=== PATIENT | male | born 1935 | race Caucasian/White ===

== ENCOUNTER 2017-05-24 18:14 | Inpatient (IN) | payer MEDICARE, BC ==
[~2017-05-24] VITALS: Ht 177.8 cm; Wt 84.4 kg
[~2017-05-24 18:14] MED LIST: GLUCOTROL 5 MG T5 MG PO; NORCO 10/325 TA1 TA1 PO; PLAVIX75 MG PO; PRAVACHOL40 MG PO; PRINIVIL20 MG PO; TIMOPTIC 0.5 % O5 ML EACH EYE; TRIGLIDE160 MG PO; XALATAN 0.0052.5 ML EACH EYE
[2017-05-24 19:19] LABS: BASOPHILS 0.1 % (0-2); EOSINOPHILS 0.2 % (0-7); HEMATOCRIT 43.4 % (42.0-54.0); HEMOGLOBIN 14.9 g/dL (13.5-17.5); IMMATURE GRANULOCYTES 0.6 % (0-5); LYMPHOCYTES 5.1 % (15-50); MCH 31.6 pg (26.0-34.0); MCHC 34.3 g/dL (31.0-37.0); MCV 92.1 fL (80.0-100.0); MEAN PLATELET VOLUME 8.9 fL (7.4-10.4); MONOCYTES 9.3 % (2-11); NEUTROPHILS 84.7 % (40-80); PLATELET COUNT 252 10x3/uL (130-400); RBC 4.71 10x6/uL (4.20-6.10); WBC 12.4 10x3/uL (4.8-10.8)
[2017-05-24 19:38] LABS: ALBUMIN 2.6 g/dL (3.4-5.0); ALKALINE PHOSPHATASE 97 U/L (46-116); ALT (SGPT) 12 U/L (10-68); CALC OSMOLALITY 285 mosm/kg (275-300); CALCIUM 9.4 mg/dL (8.5-10.1); CARBON DIOXIDE 23.8 mmol/L (21.0-32.0); CHLORIDE - SERUM 106 mmol/L (98-107); CREATININE - SERUM 0.9 mg/dL (0.6-1.3); GLUCOSE 149 mg/dL (74-106); POTASSIUM - SERUM 3.3 mmol/L (3.5-5.1); SODIUM 141 mmol/L (136-145); UREA NITROGEN 17 mg/dL (7-18); eGFR NON AFRICAN AMERICAN 86 mL/min (90-120)
[2017-05-24 20:16] LABS: APPEARANCE HAZY (CLEAR); BILIRUBIN NEGATIVE (NEGATIVE); COLOR YELLOW (YELLOW); GLUCOSE NEGATIVE (NEGATIVE); KETONE NEGATIVE (NEGATIVE); LEUKOCYTE ESTERASE 2+ (NEGATIVE); NITRITE NEGATIVE (NEGATIVE); PROTEIN TRACE mg/dL (NEGATIVE); UROBILINOGEN NORMAL (NORMAL)
[2017-05-24 20:17] LABS: WHITE CELLS - URINE 25-50 /hpf (0-5)
[2017-05-24 20:18] LABS: BACTERIA MANY /hpf (NONE SEEN)
--- NOTE | 2017-05-24 23:38 | NUR ---
CALLED ER FOR REPORT ON FROM [facility]. AFTER BEING ON HOLD 5 MINS I HUNG UP TO ANSWER A CALL LIGHT THAT WAS ON. WILL CALL BACK TO ER SHORTLY.
[2017-05-25] VITALS (7 sets, daily range): BP systolic 91–116; BP diastolic 51–68; Ht 177.8 cm; Wt 84.4 kg
--- NOTE | 2017-05-25 00:02 | NUR ---
REPORT RECEIVED FROM ZINA. PT IS REPORTED TO BE CONFUSED. AA0 X1. ANXIOUS. PT IS CALM WHEN FAMILY IS IN ROOM AND FAMILY IS AT BEDSIDE. WILL PREPARE ROOM AND PUT A OMKAR ALARM FOR PT. POTASSIUM IS NOTED TO BE 3.3. ZINA STATES SHE WILL ADDRESS THIS WITH THE DOCTOR PRIOR TO TRANSFERING PT UP TO ROOM 2135. WILL PT NOTE IN WHEN PT ARRIVES
--- NOTE | 2017-05-25 01:00 | NUR ---
PT ARRIVED TO ROOM VIA STRECHER. AT BEDSIDE. PT HAS 2L OF NC. HAILY SHOWS CONCENTRATED RED URINE. ZINA BROUGHT UP POTASSIUM 40MEQ. ZINA STATES GAVE VERBAL ORDER FOR THE 40MEQ. WILL PUT ORDER IN AND GIVE POTASSIUM. MED REC DONE. PT DENIES ANY NEEDS. NO S/S OF DISTRESS. IV TO LEFT HAND IS PATENT NO REDNESS OR SWELLING. INFUSING NS AT 75ML/HR ORDERED. BED LOW CALL LIGHT IN REACH. BED ALARM ON AND ACTIVATED. WILL CPOC
[2017-05-25] MEDS ORDERED: BUPROPION XL150 MG PO (01:06)
[2017-05-25] MEDS ORDERED: PREDNISONE5 MG PO (01:06)
[2017-05-25] MEDS ORDERED: ZYTIGA250 MG PO (01:07)
[2017-05-25] MEDS ORDERED: VITAMIN D31000 UNI2 PO (01:09)
[2017-05-25] MEDS ORDERED: FISH OIL 1,0001 CA1 PO (01:09)
[2017-05-25] MEDS ORDERED: BAYER CHEWABLE81 MG PO (01:10)
[2017-05-25] MEDS ORDERED: PLAVIX75 MG PO (01:11)
[2017-05-25] MEDS ORDERED: FERROUS SULFAT140 MG PO (01:11)
--- NOTE | 2017-05-25 03:26 | NUR ---
PT ASLEEP. RESPIRATIONS EVEN AND UNLABORED. PT HAS CONCENTRATED RED URINE, SEDIMENT AND CLOTS SEEN. PT HAS NO S/S OF DISTRESS. BED LOW CALL LIGHT IN REACH. BED ALARM ON. WILL CPOC
--- NOTE | 2017-05-25 07:30 | NUR ---
REPORT RECIEVED. RR EVEN AND UNLABORED. PT ALERT AND ORIENTED X4. INTRODUCED SELF AND PLACED NAME ON WHITE BOARD. PT DENIES NEEDS AT THIS TIME. BAILEY DRAINING CLOUDY, RED, CONCENTRATED URINE. WILL CTM.
--- NOTE | 2017-05-25 13:15 | NUR ---
ASSISTED PT OFF THE BED MEAD, HAD MODERATE SIZED BROWN BM. PT RESTING QUIETLY, WILL CTM.
--- NOTE | 2017-05-25 18:06 | NUR ---
PT RESTING QUIELTY, CATHETER EMPTIED. RR EVEN AND UNLABORED, PT ALERT AND ORIENTED X4. WILL GIVE REPORT ON PT CONDITION FOR THE DAY.
--- NOTE | 2017-05-25 19:38 | NUR ---
PT ASLEEP. RESPIRATIONS EVEN AND UNLABORED. AT BEDSIDE. PT HAS NO S/S OF DISTRESS. BED LOW CALL LIGHT WITHIN REACH. BED ALARM ON AND ACTIVE. NS INFUSING TO LEFT HAND IV AT 75. WILL CPOC
--- NOTE | 2017-05-25 21:23 | NUR ---
PT AWAKE AT THIS TIME FOR 2100 MEDS. BLOOD SUGAR IS 242. WILL ADMINISTER 4 UNITS. PT IS MORE ALERT THAN YESTURDAY. AAO TO NAME AND TIME. REORIENTED TO PLACE AND SITUATION. PT TOLERATED MEDS WELL. DENIES ANY NEEDS. URINE HAS DECREASED IN CONCENTRATION AND COLOR IS NOW MANUELA CLOTS AND SEDIMENT STILL PRESENT. WILL CPOC
[2017-05-26] VITALS: BP 136/71
[2017-05-26 04:00] VITALS: BP 148/81
--- NOTE | 2017-05-26 06:42 | NUR ---
PT ASLEEP. RESPIRATIONS EVENA AND UNLABORED. NO S/S OF DISTRESS. WILL CPOC
--- NOTE | 2017-05-26 07:42 | NUR ---
AM ROUNDING- RECEIVED REPORT FROM SUPPLY CHAIN PLANNER NURSE JAYDA. PT IS CURRENTLY LAYING IN BED ON BACK WITH EYES CLOSED RESTING. ON 02 AT 2L VIA NC. ON MONITOR SHOWING SR, HR 63. IV SEEN TO LEFT HAND WITH NS RUNNING AT 75CC. BAILEY CATHETER SEEN WITH CONCENTRATED URINE. SCDS ARE ON. NO NEED AT THIS CURRENT TIME. WILL CONTINUE TO MONITOR AND CONTINUE WITH PLAN OF CARE.
[2017-05-26 09:31] VITALS: BP 138/78
--- NOTE | 2017-05-26 10:29 | NUR ---
1015- LYDIA JONES STATES PTS IV IS OUT AND THERE IS BLOOD ON PTS BED. I WENT TO CHECK ON PT. IV SEEN OUT AND LAYING ON FLOOR. BLOOD SEEN ON PTS GOWN, BED, BED RAILS, AND FLOOR. THIS NURSE HELD PRESSURE TO IV SITE FOR SEVERAL MINUTES. NO BLEEDING SEEN AFTER. LYDIA JONES AND LYDIA DEMARCO ARE IN ROOM HELPING CLEAN UP PT. SKY HUERTA, TRAINER IN ROOM NOW STARTING IV CATHETER. 1025- SKY HUERTA, TRAINER SITED PT WITH 20G IV CATHETER TO RIGHT FOREARM.
--- NOTE | 2017-05-26 10:46 | NUR ---
LYDIA DEMARCO IN ROOM NOW GETTING PT CLEANED UP. FAMILY MEMBERS ARE AT BEDSIDE.
--- NOTE | 2017-05-26 12:32 | NUR ---
Rehab Note- Acute Rehab Prescreen order received. Awaiting Physical therapy eval at this time to see what the patient's fumctional mobility. Will follow at this time. Thank you for this referral! Aayh Busby RN Clinical Liaison, [facility] Rehab
--- NOTE | 2017-05-26 16:30 | NUR ---
Patient Name: WILLIAM ROTH Admission Status: ER Accout number: [id number] Admission Date: 05-24-2017 : 1935 Admission Diagnosis:URINARY TRACT INFECTION, SITE NOT SPECIFIED Attending: MALAIKA KAY Current LOS: 2 Anticipated DC Date: 05-27-2017 Planned Disposition: Inpatient Rehab Primary Insurance: MEDICARE A & B PLANNED EXTERNAL PROVIDER: [facility] Discharge Planning Comments: * Is the patient Alert and Oriented? Yes 0 * How many steps to enter\exit or inside your home? NONE 0 * PCP DR. KAY 0 * Pharmacy [facility] 0 * Preadmission Environment Home with Family 0 * ADLs Partial Dependent 0 * Partial ADLs (Assistance needed) Bathing 0 * Equipment Bedside Commode Cane Tub Bench Walker 0 * Other Equipment [facility] 0 * List name and contact numbers for known caregivers / representatives who currently or will assist patient after discharge: RENÉE ROTH, SPOUSE, 0 * Community resources currently utilized Home Health 0 * Please name any agencies selected above. [facility] 0 * Additional services required to return to the preadmission environment? Yes * Can the patient safely return to the preadmission environment? Yes 0 * Has this patient been hospitalized within the prior 30 days at any hospital? No 0 CM RECEIVED INPATIENT REHAB PRESCREENING, MET WITH PT AND SPOUSE IN ROOM TO DISCUSS DISCHARGE PLANNING AND NEEDS. PT REPORTS LIVING AT HOME INDEPENDENTLY WITH HIS ; PT'S SPOUSE REPORTS HOME HEALTH HAS BEEN HAVING TO HELP PT WITH A BATH AND PT WAS ONLY DOING EXERCISES WHEN HOME HEALTH CAME BY AND NOTHING ON HIS OWN. PT HAS ALL NEEDED MEDICAL EQUIPMENT FROM [facility]. PT HAS HAD HOME HEALTH WITH [facility] FOR NURSING, THERAPY AND AIDE SERVICES. CM DISCUSSED AVAILABILITY OF HOME HEALTH, REHAB SERVICES AND MEDICAL EQUIPMENT. CM DISCUSSED AVAILABILITY AND LOCATIONS OF REHAB. PT HAS BEEN IN [facility] AFTER HIP SURGERY, JUST WENT HOME ON APRIL 16 FROM [facility] REHAB. PT FEELS HE CAN PARTICIPATE IN THREE HOURS OF PROGRESSIVE THERAPY PER DAY AND WANTS REHAB AT [place], PT REPORTS HIS SPOUSE WILL PICK HIM UP FOR DISCHARGE HOME. IMPORTANT MESSAGE FROM MEDICARE PROVIDED AND EXPLAINED. CM WAITING ADMISSION DETERMINATION FROM [facility]. [place]: Kali Sprague
--- NOTE | 2017-05-26 17:12 | NUR ---
PT IS CURRENTLY SITTING UP IN BED EATING DINNER. IS AT BEDSIDE ASSITING PT TO EAT. NO NEED AT CURRENT TIME. CALL LIGHT IN REACH. WILL CONTINUE TO MONITOR.
--- NOTE | 2017-05-26 19:05 | NUR ---
ALERT/AWAKE DENIES PAIN OR ANY NEEDS. HAS CALL LIGHT AND BEDSIDE TABLE WITH PERSONAL ITEMS IN REACH.
[2017-05-26 20:00] VITALS: BP 161/79
--- NOTE | 2017-05-26 21:10 | NUR ---
ADMIN SCHED PO MEDS WITH SIPS OF WATER SWALLOWING WITHOUT DIFFICULTY. CHECKED BS AT 159, ADMIN HUMULIN R 2 UNITS. REQUESTED DOOR CLOSED TO SLEEP. HAS CL IN REACH.
[2017-05-27] VITALS: BP 164/81
--- NOTE | 2017-05-27 00:30 | NUR ---
RESTING WITH EYES CLOSED. RR 16 EVEN U/L. NO S/S OF DISCOMFORT. CL IN REACH.
[2017-05-27 04:00] VITALS: BP 267/81
--- NOTE | 2017-05-27 05:15 | NUR ---
CHECKED BS AT 128. NO INSULIN REQUIRED PER S/S. ADMIN SCHED PO MED. DENIES ANY NEEDS OR DISCOMFORTS.
--- NOTE | 2017-05-27 07:40 | NUR ---
AM ROUNDS- PT IN BED, WITH EYES CLOSED, BED LOW AND WHEELS LOCKED. RESP EVEN AND UNLABORED. RT AC INFUSING NS AT 75CC/HR. BAILEY DRAINING TO GRAVITY. NAD NOTED, WILL CONTINUE TO MONITOR.
[2017-05-27 09:17] VITALS: BP 154/70
--- NOTE | 2017-05-27 09:32 | NUR ---
AM MEDS GIVEN AT THIS TIME. PT IN BED, DENIES ANY NEEDS, CALL LIGHT IN REACH, NAD NOTED, WILL CONTINUE TO MONITOR.
[2017-05-27 12:01] VITALS: BP 151/71
--- NOTE | 2017-05-27 12:43 | HP ---
PATIENT: WILLIAM ROTH MEDICAL RECORD: [id number] ACCOUNT: [id number] LOCATION:[address] : [birth year] ADMISSION DATE: 05/24/17 HISTORY AND PHYSICAL EXAMINATION DATE OF ADMISSION: 05/24/2017 CHIEF COMPLAINT: Dysuria and weakness. HISTORY OF PRESENT ILLNESS: This is an 81-year-old white male with significant dementia. He has not been feeling well for days as blood pressure has been elevated and he has been having urinary accidents, not being able to get to the bathroom in time. reports subjective fever and increased confusion. In the Emergency Room, his white count was 12,000. Basic metabolic panel was good except potassium is a little low at 3.3. His glucose was only 149. Liver enzymes were normal. Urinalysis showed many bacteria, 2+ leukocyte esterase, 2+ blood. He was admitted for urinary tract infection and weakness. PAST MEDICAL HISTORY: Again, he has dementia and his is his primary caregiver. He has a history of coronary artery disease, hypertension and non-insulin dependent diabetes. He has had degenerative arthritis, has had lumbar surgery, hyperlipidemia, history of prostate cancer, osteoporosis with compression fractures at L1, L2 and L4; history of polycythemia vera and sees Dr. Martins for that, has history of sleep apnea and B12 deficiency. PAST SURGICAL HISTORY: He has had bilateral knee replacements, left hip replacement, lumbar surgery, he has had one stent in his heart and kyphoplasty of L1 and L2 compression fractures. HOME MEDICATIONS: Include Zytiga 1000 mg at bedtime, Plavix 75 mg once a day, ferrous sulfate once a day, pravastatin 40 mg once a day, lisinopril 40 mg once a day, fenofibrate 160 mg once a day, fish oil 1000 mg once a day, Wellbutrin-XR 150 mg once a day, aspirin 81 mg once a day, Timoptic 0.5% ophthalmic drops 1 drop each eye at bedtime, Xalatan 0.005% ophthalmic drops 1 drop in each eye at bedtime, glipizide 5 mg once a day, prednisone 5 mg twice a day, vitamin D 1000 units once a day and he takes hydrocodone 10/325 p.r.n. pain. ALLERGIES: PENICILLIN AND ADHESIVE TAPE. SOCIAL HISTORY: Retired, lives with his . HABITS: Never smoked. No alcohol or drug use. FAMILY HISTORY: Father at 82 of heart disease. Mother at 79 of unknown causes, she had dementia. REVIEW OF SYSTEMS: GENERAL: No major weight changes. HEENT: No particular sinus or allergy problems. RESPIRATORY: No history of COPD or asthma. CARDIAC: He has had one stent, but is stable at this time. GASTROINTESTINAL: He has had some reflux, but otherwise does pretty well. GENITOURINARY: He has had history of prostate cancer. MUSCULOSKELETAL: He has arthritis and has had multiple joint replacements and lumbar surgery. HISTORY AND PHYSICAL [id number] IRAWILLIAM [facility] NEUROLOGIC: He has dementia. He has no migraine headaches. PSYCHIATRIC: He has depression. PHYSICAL EXAMINATION: VITAL SIGNS: Temperature 99.7, pulse 104, respirations 17 and blood pressure 140/80. GENERAL: He does not appear in acute distress. He does not really talk. He has dementia. HEENT: Grossly within normal limits. NECK: Supple. HEART: Regular rate and rhythm without murmur. LUNGS: Clear. ABDOMEN: Soft, flat, nontender. EXTREMITIES: No edema. NEUROLOGIC: Unable to be obtained as he has dementia and will not follow instruction. LABORATORY WORK: CBC showed a white count of 12,400, hemoglobin 14.9, hematocrit 43.4 and 85% neutrophils. Basic metabolic panel is okay except potassium a little low at 3.3. Liver functions were all normal. Urinalysis: Yellow, hazy urine with trace protein, 2+ blood, 2+ leukocyte esterase, 5-10 red blood cells, 25-50 white blood cells and many bacteria. ASSESSMENT: 1. Urinary tract infection. 2. Weakness. 3. Underlying dementia. 4. Hypertension. PLAN: He has been started on Rocephin. Urine culture has been obtained. We will give him his usual medications. Follow up cultures. Other tests and procedures as warranted. TRANSINT:[id number] Voice Confirmation ID: [id number] DOCUMENT ID: [id number] MALAIKA KAY MD at 1243 CC: [id number] DICTATION DATE: 05/26/17 1322 BRILLIANDEER LOPPER: 05/26/17 1412 [facility] IN [facility] [address] [place] [address]
[2017-05-27] MEDS ORDERED: LEVAQUIN250 MG PO (13:02)
--- NOTE | 2017-05-27 13:20 | NUR ---
Patient Name: WILLIAM ROTH Encounter No: [id number] : 1935 Primary Insurance: MEDICARE A & B Anticipated DC Date: 05-27-2017 Planned Disposition: Inpatient Rehab External Planned Provider: [facility] DCP follow-up note: CM SPOKE TO ZANDER OF INPATIENT REHAB, THEY PLAN TO ACCEPT PT TODAY, FOR REHAB. PT NOTIFIED; DR. KAY NOTIFIED IN CLINIC, ALL IN AGREEMENT WITH DISCHARGE TO INPATIENT REHAB. [facility] INPATIENT REH[facility] TO CONTACT MED 2 NURSE WITH ROOM NUMBER WHEN READY TO ACCEPT PT AND NURSE REPORT. Kali Sprague, CASE MANAGEMENT
--- NOTE | 2017-05-27 13:27 | NUR ---
BAILEY REMOVED AT THIS TIME, 10CC OF NS REMOVED FROM BALLOON. PT DENIES ANY NEEDS AT THIS TIME. CALL LIGHT IN REACH, NAD NOTED, WILL CONTINUE TO MONTIOR.
--- NOTE | 2017-05-27 16:46 | NUR ---
CALLED INPATIENT REHAB AND GAVE REPORT TO JOSE MARTIN DE LEON WHO WILL BE TAKING CARE OF PT.
--- NOTE | 2017-05-27 18:32 | NUR ---
PROVIDED VERBAL AND WRITTEN DISCHARGE TEACHING TO PT AND . BOTH VERBALIZED UNDERSTANDING DISCHAGE. D/C RT FA IV TIP INTACT. TRANSFERED PT TO REHAB VIA BED, ACCOMPANIED BY , NAD NOTED.
[2017-05-27] MEDS ORDERED: HUMULIN R100 U/ML SC (20:14)
--- NOTE | 2017-05-31 15:46 | NUR ---
PATIENT ADMITTED TO REHAB FROM ACUTE FLOOR. DR. KAY IS PCP, [facility] IS PHARMACY AND DME COMPANY OF CHOICE. DME AT HOME: WALKER, BEDSIDE COMMODE, CANE AND TUB BENCH. PATIENT HAS USED [facility]. PLANS ARE FOR PATIENT TO RETURN HOME WITH FAMILY.
== END 2017-05-27 18:35 | DRG 690 ==
LOC: D.ER 18:14 → D.M2 22:55
PROVIDERS: Emergency Medicine; ADMIT Family Medicine
PROC: 0T9B70Z Drainage of Bladder with Drainage Device, Via Natural or Artificial Opening (ICD-10-PCS; principal; 2017-05-24)
DX: N39.0 Urinary tract infection, site not specified (principal); F03.90 Unspecified dementia, unspecified severity, without behavioral disturbance, psychotic disturbance, mood disturbance, and anxiety; E11.9 Type 2 diabetes mellitus without complications; I10 Essential (primary) hypertension; B96.20 Unspecified Escherichia coli [E. coli] as the cause of diseases classified elsewhere; E86.0 Dehydration

== ENCOUNTER 2017-05-27 16:29 | Inpatient (IN) | payer MEDICARE, BC ==
[~2017-05-27] VITALS: Ht 177.8 cm; Wt 83.9 kg
[~2017-05-27 16:29] MED LIST changes: +BAYER CHEWABLE81 MG PO; +BUPROPION XL150 MG PO; +FERROUS SULFAT140 MG PO; +FISH OIL 1,0001 CA1 PO; +LEVAQUIN250 MG PO; +PREDNISONE5 MG PO; +VITAMIN D31000 UNI2 PO; +ZYTIGA250 MG PO
--- NOTE | 2017-05-27 19:20 | NUR ---
PATIENT IN BED. AND SON AT BEDSIDE. JUST ASSISTED HIM TO USE URINAL. SAYS SHE IS GING TO THE STORE TO FIND MR. ROTH REGULAR SOCKS TO WEAR WITH HIS SHOES IN THERAPY AND WILL RETURN. PATIENT DENIES NEEDS.
[2017-05-27 19:45] VITALS: BP 156/73; BMI 26.6
[2017-05-27] MEDS ORDERED: HUMULIN R100 U/ML SC (20:14)
--- NOTE | 2017-05-27 20:30 | NUR ---
RETURNED WITH NEW SOCKS AND IS NOW DEPARTING FOR HOME.
--- NOTE | 2017-05-27 21:30 | NUR ---
RESTING QUIETLY IN BED, EYES CLOSED.
--- NOTE | 2017-05-27 23:20 | NUR ---
FOUND PATIENT IN BED, WET FROM URINE INCONTINENCE. CHANGED ALL BED LINENS. APPLIED PULL-UP BRIEF PER PATIENT DESIRE. INSTRUCTED HIM IN PROPER USE OF URINAL WHILE WEARING A PULL-UP. HS MEDS WERE THEN GIVEN TO PATIENT AND ADMISSION ASSESMENT CONTINUED.
--- NOTE | 2017-05-28 00:10 | NUR ---
ADMISSION ASSESSMENT AND HISTORY COMPLETE. PATIENT SIGNED ADMISSION DOCUMENTS. DENIES CURRENT NEEDS.
--- NOTE | 2017-05-28 01:50 | NUR ---
PATIENT GREER OOB OVER FOOTBOARD. SAID HE WAS TRYING TO GET UP AND, "GO TO THE OTHER ROOM AND SIT IN MY RECLINER." REMINDED HIM HE IS IN THE HOSPITAL. PATIENT THEN STATED, "WELL THEN, I GUESS THAT MEANS I'M CONFUSED." CHANGED PULL-UP AND BLUE AIR PAD ON BED DUE TO LARGE URINE INCONTINENCE. WITH ASSIST FROM SURY TOBAR, ASSISTED PATIENT TO REPOSITION HIGHER UP IN BED. RESET BED ALARM.
--- NOTE | 2017-05-28 04:00 | NUR ---
RESTING IN BED, ON RIGHT SIDE. RESPIRATIONS UNLABORED.
--- NOTE | 2017-05-28 05:50 | NUR ---
FSBS 150. GAVE PATIOENT SCHEDULED GLUCOTROL PO. CLENSED AND CHANGED PATIENT FROM LERGE URINARY INCONTINENCE IN BRIEF WHICH ALSO REQUIRED CHANGING PINK PAD AND TOP LINENS.
[2017-05-28 07:11] VITALS: BP 125/86
--- NOTE | 2017-05-28 07:32 | NUR ---
RESTING QUIETLY IN BED. NO S/S DISTRESS NOTED. CALL LIGHT IN REACH
[2017-05-28 09:51] VITALS: Ht 177.8 cm; Wt 83.9 kg
--- NOTE | 2017-05-28 09:54 | NUR ---
PATIENT ANSWEARS APPROPERLATLY TO SELF, TIME, PLACE. SOME FORGETTFULNESS NOTED. BED ALARM ON. VOICES NO NEEDS AT THIS TIME.
--- NOTE | 2017-05-28 12:55 | NUR ---
PATIENT HAS BOX ALARM ON IN CHAIR. ALARM WENT OFF WHEN PATIENT TRIED TO GET OUT OF CHAIR AND INTO BED. THIS NURSE ASST PATIENT BACK INTO BED. BED ALARM ON.
--- NOTE | 2017-05-28 17:55 | NUR ---
GLUCOSE LEVEL 228. FOUR UNITS OF SLIDING SCALE INSULIN GIVEN. PATIENT INCONT OF URINE. ANGLE CARE GIVEN. PATIENT WEARING BRIEFS
--- NOTE | 2017-05-28 19:30 | NUR ---
EMPTY URINAL 350ML.
--- NOTE | 2017-05-28 20:40 | NUR ---
REST IN BED, EYE OPEN, DENIES NEEDS.
[2017-05-28 22:07] VITALS: BP 133/87
--- NOTE | 2017-05-28 22:10 | NUR ---
RESTING IN BED, EYES CLOSED.
--- NOTE | 2017-05-29 02:19 | NUR ---
REST IN BED QUIETLY, EYE CLOSE, CALL LIGHT IN REACH.
--- NOTE | 2017-05-29 07:37 | NUR ---
PT IN BED WITH EYES CLOSED AND CHEST RISING. EASILY AROUSED TO VERBAL STIMULI. BREAKFAST SETUP. PT PULLED UP IN BED AND HOB RAISED. NO OTHER NEEDS OR CONCERNS NOTED. CALL LIGHT IN REACH.
--- NOTE | 2017-05-29 11:39 | NUR ---
PT IN BED WITH EYES CLOSED AND CHEST RISING. NO SIGN/SYMPTOMS OF DISTRESS NOTED. CALL LIGHT IN REACH. WILL CONTINUE TO OBSERVE.
--- NOTE | 2017-05-29 19:15 | NUR ---
PT LYING IN BED. RESTING QUIETLY. PINK PAD AND BRIEF CHANGED. FSBS ACHS. CHITIMACHA. BED ALARM. CONFUSED AT TIMES. NO O2. NO IV. BED IN LOWEST POSITION AND CALL LIGHT WITHIN REACH.
[2017-05-29 19:24] VITALS: BP 150/86
[2017-05-29 19:30] VITALS: BP 125/83
--- NOTE | 2017-05-29 23:15 | NUR ---
PT LYING IN BED EYES CLOSED. CHEST RISING AND FALLING. BED IN LOWEST POSITION AND CALL LIGHT WITHIN REACH.
--- NOTE | 2017-05-30 03:15 | NUR ---
PT LYING IN BED. EYES CLOSED. RESPIRATIONS EVEN AND UNLABORED. BED IN LOWEST POSITION AND CALL LIGHT WITHIN REACH.
--- NOTE | 2017-05-30 03:52 | NUR ---
RESTING IN BED WITH EYES CLOSED. NO S/S OF DISTRESS OBSERVED. CALL LIGHT AND OVERBED TABLE IN REACH.
[2017-05-30 06:26] LABS: BASOPHILS 0.4 % (0-2); HEMATOCRIT 41.2 % (42.0-54.0); LYMPHOCYTES 16.3 % (15-50); MCH 31.3 pg (26.0-34.0); MCV 92.2 fL (80.0-100.0); MEAN PLATELET VOLUME 8.9 fL (7.4-10.4); MONOCYTES 10.4 % (2-11); NEUTROPHILS 67.9 % (40-80); PLATELET COUNT 291 10x3/uL (130-400); RBC 4.47 10x6/uL (4.20-6.10); RDW 13.9 % (11.5-14.5); WBC 7.9 10x3/uL (4.8-10.8)
[2017-05-30 06:56] LABS: CALC OSMOLALITY 287 mosm/kg (275-300); CALCIUM 8.8 mg/dL (8.5-10.1); CARBON DIOXIDE 27.4 mmol/L (21.0-32.0); CHLORIDE - SERUM 105 mmol/L (98-107); CREATININE - SERUM 0.7 mg/dL (0.6-1.3); GLUCOSE 143 mg/dL (74-106); POTASSIUM - SERUM 3.7 mmol/L (3.5-5.1); SODIUM 142 mmol/L (136-145); UREA NITROGEN 22 mg/dL (7-18); eGFR NON AFRICAN AMERICAN > 90 mL/min (90-120)
--- NOTE | 2017-05-30 07:00 | NUR ---
PT IN BED WITH HOB UP FOR COMOFRT. EYES CLOSED. CHEST RISING AND FALLING. BED IN LOWEST POSITION AND CALL LIGHT WITHIN REACH.
[2017-05-30 08:00] VITALS: BP 152/85
--- NOTE | 2017-05-30 08:00 | NUR ---
PATIENT VERY CONFUSED. INCONTINANT OF URINE. BRIEFS AND SHEETS CHANGED. CALL LIGHT WITHIN PATIENTS REACH. BED ALARM ON.
--- NOTE | 2017-05-30 12:15 | NUR ---
GLUCOSE LEVEL 123. NO SLIDING SCALE INSULIN GIVEN PER ORDER
--- NOTE | 2017-05-30 13:15 | NUR ---
AND SON IN ROOM WITH PATIENT. OCCUPATIONAL THERAPIST IN ROOM. PATIENT STATES HE DOES NOT WANT TO GET UP AND DO THERAPY. AND SON TRYING TO GET PATIENT MOTIVATED.
--- NOTE | 2017-05-30 16:00 | NUR ---
PATIENT WORKING WITH PHYSICAL THERAPIST. WALKING WITH WHEELED WALKER DOWN HALLWAY.
--- NOTE | 2017-05-30 17:07 | NUR ---
GLUCOSE LEVEL 193. TWO UNITS OF SLIDING SCALE INSULIN.
--- NOTE | 2017-05-30 18:30 | NUR ---
PT RESTING IN ROOM, DENIES NEEDS. WCTM.
--- NOTE | 2017-05-30 19:35 | NUR ---
PT. LYING IN BED WITH HOB UP FOR COMFORT AND IS WATCHING TV. NO VOICED NEEDS. ASSESSMENT COMPLETED. CALL LIGHT WITHIN REACH.
[2017-05-30 20:07] VITALS: BP 133/76
--- NOTE | 2017-05-30 23:09 | NUR ---
PT. IN BED LYING ON HIS LEFT SIDE. EYES CLOSED AND RESP. EVEN. CALL LIGHT WITHIN REACH.
--- NOTE | 2017-05-31 03:01 | NUR ---
PT. IN BED WITH HOB UP FOR COMFORT AND EYES ARE CLOSED AND RESP. EVEN. CALL LIGHT WITHIN REACH.
--- NOTE | 2017-05-31 07:40 | NUR ---
LYING IN BED ALERT AND ORIENTED CONFUSED TO SITUATION. CHANGED BRIEF DUE TO LARGE URINE INCONTINENCE. OFFERS NO COMPLAINTS. CALL LIGHT IN REACH. WILL CONTINUE TO MONITOR
[2017-05-31 08:17] VITALS: BP 148/80
--- NOTE | 2017-05-31 09:15 | NUR ---
Nutrition Follow Up: Pt is eating 69% meal avg on a diabetic diet. He is receiving Glucerna with meals. No BM since admit. Labs reviewed - Glucose elevated. Meds noted including Prednisone. Rec continue current diet, supplement regimen. RD following.
--- NOTE | 2017-05-31 10:27 | NUR ---
IN THERAPY GYM WITH PHYSICAL THERAPY
--- NOTE | 2017-05-31 15:49 | NUR ---
PATIENT ADMITTED TO REHAB FROM ACUTE FLOOR. DR. KAY IS HIS PCP, [facility] IS PHARMACY AND DME PROVIDER. DME AT HOME: CANE, TUB BENCH CANE, WALKER AND BEDSIDE COMMODE. PATIENT HAS USES [email or web address] IN THE PAST. PLANS ARE FOR PATIENT TO RETURN HOME WITH FAMILY. WILL CONTINUE TO FOLLOW WITH PATIENT
--- NOTE | 2017-05-31 16:23 | NUR ---
LYING IN BED RESTING. AT BEDSIDE. OFFERS NO COMPLAINTS. CALL LIGHT IN REACH. WILL CONTINUE TO MONITOR
--- NOTE | 2017-05-31 18:30 | NUR ---
PT RESTING IN ROOM, DENIES NEEDS. WCTM.
--- NOTE | 2017-05-31 19:30 | NUR ---
PERFORM SHIFT ASSESSMENT AND CHECK VITAL SIGNS, SEE FLOWSHEET.
[2017-05-31 22:41] VITALS: BP 134/77
--- NOTE | 2017-06-01 01:30 | NUR ---
PT INCONTINENCE. CLEAN PERINEAL AREA, CHANGE GOWN AND LINEN.
--- NOTE | 2017-06-01 03:10 | NUR ---
IN BED, EYES CLOSED. NO DISTRESS NOTED.
--- NOTE | 2017-06-01 07:30 | NUR ---
PT WAS RECEIVED LYING IN BED THIS AM. HE IS AWAKE. HE OFFERS NO COMPLAINTS. GEN- AWAKE AND ALERT. LUNGS- CLEAR. HEART- RRR. ABD- SOFT, NT, BS+. EXT-NO EDEMA NOTED. BED IS LOW, SIDE RAILS UP X 2 AND CALL LIGHT IN REACH. WHEELCHAIR AT BEDSIDE.
--- NOTE | 2017-06-01 08:42 | NUR ---
PT REQUESTED BED MEAD. TOLD PT HE NEEDED TO GET UP TO GO TO THE BATHROOM. PT GOTTEN UP TO BATHROOM FOR A BM.
[2017-06-01 09:04] VITALS: BP 130/79
--- NOTE | 2017-06-01 11:00 | NUR ---
PT TO BATHROOM BY WHEELCHAIR. HE HAD A SMALL BM.
--- NOTE | 2017-06-01 11:26 | NUR ---
PT HAS BEEN TAKEN TO THERAPY BY WHEELCHAIR.
--- NOTE | 2017-06-01 14:00 | NUR ---
UP IN BED AWAKE AT THIS TIME. DENIES ANY NEEDS. NO ACUTE DISTRESS NOTED. WILL CONTINUE PLAN OF CARE.
--- NOTE | 2017-06-01 17:20 | RHP ---
PATIENT: WILLIAM ROTH MEDICAL RECORD: [id number] ACCOUNT: [id number] LOCATION:[facility]1110 : 35 ADMISSION DATE: 05/27/17 REHABILITATION HISTORY AND PHYSICAL EXAMINATION POST ADMISSION PHYSICIAN EXAMINATION DATE OF ADMISSION: 05/27/2017 ADMITTING DIAGNOSES: Urinary tract infection due to Escherichia coli contributing to debility. HISTORY OF PRESENT ILLNESS: The patient admitted to inpatient rehabilitation due to E. coli. He is an 81-year-old gentleman who has not been feeling well for days prior to this with blood pressure elevation and having problems with urinary accidents and not able to get to the bathroom in time. reports subjective fever and increased confusion. In Emergency Room, his white count was 12,000. Urinalysis, so many bacteria, 2+ leukocyte esterase, 2+ blood. He was admitted for urinary tract infection and weakness and receiving IV antibiotics and IV fluids due to dehydration. Urine culture grew E. coli which was pansensitive, he has been on oxygen at 2 liters via nasal cannula. His temperature been elevated. He was living home with his who is his owner/operator since he has got another dementia. He will need his hypertension diabetes follow closely during his rehab stay. He is moderately independent with mobility with use of a rolling walker and was set up independent with his ADLs. He was recently discharged home from the SNF stay after hip fracture and was doing well at home with his until a few days prior to this event. He is currently set at max assist for ADLs, max assist to total assist for mobility. Plans to return home at prior level of functioning or better. COMORBIDITIES: Include urinary tract infection, weakness, underlying dementia, hypertension diabetes. PAST MEDICAL HISTORY: Significant for diabetes, coronary artery disease, hypertension, non-insulin dependent diabetes, degenerative arthritis, prostate cancer, osteoporosis, B12 deficiency, depression, CVA in the past, and glaucoma. PAST SURGICAL HISTORY: Includes bilateral knee replacements, left hip surgery, lumbar surgery, history of stent and kyphoplasty. ALLERGIES: ADHESIVE TAPE AND PENICILLIN. CURRENT MEDICATIONS: He is on a hypoglycemia replacement protocol. He is on a low resistant sliding scale with Humulin, he is on Floranex 460 mg daily, Pravachol 40 mg daily, lisinopril 40 mg daily, Levaquin 250 mg daily for a total of 5 doses, Glucotrol 5 mg daily, omega 3 fish oil daily, ferrous sulfate 325 mg daily, TriCor 145 mg daily, clopidogrel, Plavix 75 mg daily, vitamin D 1000 units daily, Wellbutrin-XL 150 mg daily, chewable aspirin 81 mg daily, Timoptic eyedrops b.i.d., prednisone 5 mg b.i.d., Xalatan eye drops at bedtime, Hiram 10/325 one tab q.6 hours p.r.n. He is on polyethylene glycol 17 grams in 8 ounces of water daily. HABITS: No alcohol or tobacco use. FAMILY HISTORY: Noncontributory. HISTORY AND PHYSICAL [id number] WILLIAM ROTH SOCIAL HISTORY: The patient hopes to return home and get back to his prior level of functioning. REVIEW OF SYSTEMS: GENERAL: Does complain of weakness. HEENT: Denies cold, cough, or congestion. CARDIOVASCULAR: Denies chest pain. PHYSICAL EXAMINATION: VITAL SIGNS: Stable, afebrile. GENERAL: Elderly gentleman in no acute distress, alert upon exam. HEENT: Normocephalic and atraumatic. Mucosa moist. NECK: Supple. No lymphadenopathy. LUNGS: Clear at this time. HEART: Regular rate and rhythm. ABDOMEN: Benign. EXTREMITIES: No clubbing, cyanosis or edema. NEUROLOGIC: Consistent with dementia. ASSESSMENT: This is an 81-year-old gentleman admitted to the rehab with a working diagnosis of urinary tract infection and debility secondary Escherichia coli. The patient has potential to make improvement. We instituted the following multidisciplinary therapies including to, but not limited to physical, occupational, respiratory, speech, nutritional services, prosthetics and orthotics. Given his complex condition and risk for more complications, rehabilitation services cannot be provided at a lower level of care such as a correction facility. PLAN: 1. Admit to [facility] rehab for intensive inpatient therapy to include the following disciplines: A. Physical therapy to improve gait, all transfer skills and bed mobility to a modified independent level. B. Occupational therapy to improve activities of daily living to a modified independent level. C. Case management to assist with discharge planning and placement options. D. Nutrition to assist with nutritional needs. E. Rehabilitation nursing to assist in monitoring the patient's underlying medical conditions and to assist with any type of bowel or bladder management. 2. The patient's current medications and medical care will be continued. 3. The patient will be placed on standard fall precautions. 4. The patient's estimated length of stay is approximately 7-10 days. 5. Discuss this patient during care team staff meeting this week. TRANSINT:[id number] Voice Confirmation ID: [id number] DOCUMENT ID: [id number] KIMBERLY notes whether there has been none or any medical/functional change since admission: - KIMBERLY attests patient continues to be appropriate for IRF: - HISTORY AND PHYSICAL [id number] WILLIAM ROTH SCOTT MD at 1720 CC: [id number] DICTATION DATE: 05/28/171813 PATCH SANDER: 05/28/172001 ADM IN [facility] [address] [place] [address]
--- NOTE | 2017-06-01 18:07 | NUR ---
UP IN BED AT THIS TIME EATING SUPPER AND VISITING WITH AT THIS TIME. DENEIS ANY NEEDS. NO ACUTE DISTRESS NOTED. WILL CONTINUE PLAN OF CARE.
[2017-06-01 19:00] VITALS: BP 108/90
--- NOTE | 2017-06-01 19:10 | NUR ---
PT IN BED WITH HOB UP FOR COMFORT. RESTING QUIETLY. FSBS ACHS. URINAL. INCONTINET AT TIMES. BED ALARM. NO O2. NO IV. BED IN LOWEST POSITION AND CALL LIGHT WITHIN REACH.
--- NOTE | 2017-06-01 23:00 | NUR ---
PT LYING IN BED. EYES CLOSED. CHEST RISING AND FALLING. BED IN LOWEST POSITION AND CALL LIGHT WITHIN REACH.
--- NOTE | 2017-06-02 00:25 | NUR ---
EMPTIED PT'S URINAL. ASKED PT IF HE WAS WET OR NEEDED A NEW BRIEF. PT STATED, "NO."
--- NOTE | 2017-06-02 02:25 | NUR ---
IN BED, EYES CLOSED.
--- NOTE | 2017-06-02 06:21 | NUR ---
COMPLETE BED CHANGE DONE DUE TO PT HAVING INCONTINENCE.
--- NOTE | 2017-06-02 07:15 | NUR ---
SITTING UP IN BED RESTING COMFORTABLY. OFFERS NO COMPLAINTS. CALL LIGHT IN REACH. WILL CONTINUE TO MONITOR
--- NOTE | 2017-06-02 08:07 | NUR ---
EATING BREAKFAST IN ROOM. CALL LIGHT IN REACH. DENIES NEEDS.
[2017-06-02 08:47] VITALS: BP 148/81
--- NOTE | 2017-06-02 10:47 | NUR ---
IN THERAPY GYM WITH OCCUPATIONAL THERAPY
--- NOTE | 2017-06-02 14:01 | NUR ---
LYING IN BED RESTING. OFFERS NO COMPLAINTS. NO S/SX OF DISTRESS. CALL LIGHT IN REACH
--- NOTE | 2017-06-02 16:32 | NUR ---
SITTING UP IN BED VISITING WITH . OFFERS NO COMPLAINTS. CALL LIGHT IN REACH. WILL CONTINUE TO MONITOR.
--- NOTE | 2017-06-02 19:40 | NUR ---
EMPTY URINAL 150ML.
--- NOTE | 2017-06-02 22:47 | NUR ---
EMPTY URINAL 200ML.
[2017-06-02 23:17] VITALS: BP 132/77
--- NOTE | 2017-06-03 01:39 | NUR ---
REST IN BED, EYE CLOSE, CALL LIGHT IN REACH.
--- NOTE | 2017-06-03 02:44 | NUR ---
PT INCONTINENCE, CLEAN PERINEAL AREA, AND CHANGE GOWN AND LINEN.
[2017-06-03 06:07] LABS: BASOPHILS 0.1 % (0-2); EOSINOPHILS 0.9 % (0-7); HEMATOCRIT 41.1 % (42.0-54.0); HEMOGLOBIN 13.9 g/dL (13.5-17.5); IMMATURE GRANULOCYTES 1.3 % (0-5); LYMPHOCYTES 19.2 % (15-50); MCH 31.2 pg (26.0-34.0); MCHC 33.8 g/dL (31.0-37.0); MCV 92.4 fL (80.0-100.0); MEAN PLATELET VOLUME 8.8 fL (7.4-10.4); MONOCYTES 8.3 % (2-11); NEUTROPHILS 70.2 % (40-80); PLATELET COUNT 304 10x3/uL (130-400); RBC 4.45 10x6/uL (4.20-6.10); RDW 13.9 % (11.5-14.5); WBC 7.6 10x3/uL (4.8-10.8)
[2017-06-03 06:20] LABS: CALC OSMOLALITY 288 mosm/kg (275-300); CALCIUM 8.9 mg/dL (8.5-10.1); CARBON DIOXIDE 27.8 mmol/L (21.0-32.0); CHLORIDE - SERUM 107 mmol/L (98-107); CREATININE - SERUM 0.8 mg/dL (0.6-1.3); GLUCOSE 135 mg/dL (74-106); SODIUM 142 mmol/L (136-145); UREA NITROGEN 23 mg/dL (7-18); eGFR NON AFRICAN AMERICAN > 90 mL/min (90-120)
[2017-06-03 07:39] VITALS: BP 141/81
--- NOTE | 2017-06-03 07:50 | NUR ---
PT ASSISTED TO BR. PT HAD MED BM. PT BACK IN BED AND DENIES NEEDS AT THIS TIME. BED LOW. CLI NR EACH.
--- NOTE | 2017-06-03 09:01 | NUR ---
PT RESTING IN BED, AM MEDS ADMINISTERED. PT DENIES NEEDS AT THIS TIME. BED LOW. CL IN REACH.
--- NOTE | 2017-06-03 18:11 | NUR ---
PT RESTING IN BED. PT HAD SMALL INCONTINENT EPISODE. BRIEF CHANGED. PT DENIES NEEDS. WCTM.
--- NOTE | 2017-06-03 20:00 | NUR ---
PT IN BED WITH HOB UP FOR COMFORT. RESTING QUIETLY. URINAL EMPTIED. FSBS ACHS. BED ALARM ON. NO O2. NO IV. BED IN LOWEST POSITION AND CALL LIGHT WITHIN REACH.
[2017-06-03 21:07] VITALS: BP 137/74
--- NOTE | 2017-06-04 | NUR ---
PT IN BED WITH HOB UP FOR COMFORT. EYES CLOSED. CHEST RISING AND FALLING. BED IN LOWEST POSITION AND CALL LIGHT WITHIN REACH.
--- NOTE | 2017-06-04 04:00 | NUR ---
PT LYING IN BED. EYES CLOSED. CHEST RISING AND FALLING. BED IN LOWEST POSITION AND CALL LIGHT WITHIN REACH.
--- NOTE | 2017-06-04 06:40 | NUR ---
INCONTINENCE EPISODES COMPLETE BED CHANGE.
--- NOTE | 2017-06-04 07:08 | NUR ---
RESTING QUIETLY IN BED. NO S/S DISTRESS. CALL LIGHT IN REACH
--- NOTE | 2017-06-04 08:15 | NUR ---
PT RESTING IN BED WITH EYES OPEN CALL LIGHT IN REACH NO PROBLEMS WILL MONITER
--- NOTE | 2017-06-04 16:27 | NUR ---
PT RESTING IN BED WITH EYES OPEN CALL LIGHT IN REACH NO PROBLEMS WILL MONITER
--- NOTE | 2017-06-04 17:57 | NUR ---
PT RESTING IN BED WITH EYES OPEN CALL LIGHT IN REACH NO PROBLEMS WILL MONITER
--- NOTE | 2017-06-04 19:35 | NUR ---
PT. IN BED WITH HOB UP FOR COMFORT WITH EYES CLOSED AND RESP. EVEN. PT. AWAKENS EASILY FOR ASSESSMENT. NO VOICED NEEDS AT THIS TIME AND HE HAS THE CALL LIGHT WITHIN REACH.
[2017-06-04 19:45] VITALS: BP 142/64
--- NOTE | 2017-06-04 23:13 | NUR ---
PT. IN BED WITH HOB SLIGHTLY ELEVATED WITH EYES CLOSED AND RESP. EVEN. CALL LIGHT WITHIN REACH.
--- NOTE | 2017-06-05 03:11 | NUR ---
PT. IN BED LYING ON HIS LEFT SIDE WITH HOB UP FOR COMFORT. EYES CLOSED AND RESP. EVEN. CALL LIGHT WITHIN REACH.
[2017-06-05 10:01] VITALS: BP 136/73
--- NOTE | 2017-06-05 18:20 | NUR ---
PT RESTING ,DENIES NEEDS. WCTM.
[2017-06-05 19:45] VITALS: BP 138/73
--- NOTE | 2017-06-05 23:10 | NUR ---
PT. IN BED WITH HOB UP FOR COMFORT WITH EYES CLOSED AND RESP. EVEN. CALL LIGHT WITHIN REACH.
--- NOTE | 2017-06-06 03:07 | NUR ---
PT. IN BED WITH HOB UP FOR COMFORT WITH EYES CLOSED AND RESP. DEEP AND EVEN. CALL LIGHT IS WITHIN REACH.
[2017-06-06 07:06] LABS: BASOPHILS 0.1 % (0-2); EOSINOPHILS 0.9 % (0-7); HEMATOCRIT 42.8 % (42.0-54.0); HEMOGLOBIN 14.5 g/dL (13.5-17.5); IMMATURE GRANULOCYTES 0.6 % (0-5); LYMPHOCYTES 16.8 % (15-50); MCH 31.6 pg (26.0-34.0); MCHC 33.9 g/dL (31.0-37.0); MCV 93.2 fL (80.0-100.0); MEAN PLATELET VOLUME 8.9 fL (7.4-10.4); NEUTROPHILS 74.6 % (40-80); PLATELET COUNT 309 10x3/uL (130-400); RBC 4.59 10x6/uL (4.20-6.10); RDW 14.1 % (11.5-14.5)
[2017-06-06 07:12] LABS: CALC OSMOLALITY 298 mosm/kg (275-300); CALCIUM 9.5 mg/dL (8.5-10.1); CARBON DIOXIDE 29.8 mmol/L (21.0-32.0); CHLORIDE - SERUM 108 mmol/L (98-107); CREATININE - SERUM 0.8 mg/dL (0.6-1.3); GLUCOSE 147 mg/dL (74-106); POTASSIUM - SERUM 3.7 mmol/L (3.5-5.1); SODIUM 146 mmol/L (136-145); UREA NITROGEN 27 mg/dL (7-18); eGFR NON AFRICAN AMERICAN > 90 mL/min (90-120)
[2017-06-06 08:00] VITALS: BP 145/86
--- NOTE | 2017-06-06 09:15 | NUR ---
PT AM MEDS ADMINISTERD. PT RESTING IN BED, DENIES NEEDS. WCTM.
--- NOTE | 2017-06-06 19:20 | NUR ---
PM ROUNDS MADE, PT RESTING WITH EYES CLOSED, RESP QUIET, NO DISTRESS NOTED, LEFT UNDISTURBED AT THIS TIME
--- NOTE | 2017-06-06 20:00 | NUR ---
PT RESTING WITH EYES CLOSED, AROUSES TO SOFT VERBAL STIMUALTION, ASSESSMENT PER FLOW SHEET, PT REPORTS SMALL FLATUS, NO BM TODAY, EMPTIED 75 MLS OF CLEAR YELLOW URINE FROM URINAL, PT DENIES PAIN AT THIS TIME
--- NOTE | 2017-06-06 21:15 | NUR ---
PT RESTING WITH EYES CLOSED, AROUSES TO SOFT VERBAL STIMULATION, ADM 2100 MEDS PER MD ORDERS, SEE EMAR, OBTAINED FSBS, SEE FLOW SHEET, 2% MILK AND MEGHANA CRACKERS SERVED, PT DENIES FURTHER NEEDS OR PAIN
[2017-06-06 21:45] VITALS: BP 135/78
--- NOTE | 2017-06-06 22:30 | NUR ---
PT RESTING WITH EYES CLOSED, RESP QUIET, NO DISTRESS NOTED, LEFT UNDISTURBED AT THIS TIME
--- NOTE | 2017-06-07 00:30 | NUR ---
PT RESTING WITH EYES CLOSED, RESP QUIET, NO DISTRESS NOTED, LEFT UNDISTURBED AT THIS TIME, EMPTIED 75 MLS FROM URINAL
--- NOTE | 2017-06-07 02:30 | NUR ---
PT AWAKE, PT WET, EMPTIED URINAL, PT CLEANED UP WITH WET WARM WIPES, CLEAN BRIEF APPLIED, CHANGED SHIRTS, PINK PAD AND TOP SHEET CHANGED, PT DENIES FURTHER NEEDS OR PAIN, BED IN LOW POSITION, SIDE RAILS X 2, CALL LIGHT IN REACH, BED ALARM ON AND WORKING PROPERLY
--- NOTE | 2017-06-07 04:00 | NUR ---
PT RESTING WITH EYES CLOSED, RESP QUIET, NO DISTRESS NOTED, LEFT UNDISTURBED AT THIS TIME, BED IN LOW POSITION, SIDE RAILS X 2, CALL LIGHT IN REACH, BED ALARM ON AND WORKING PROPERLY
--- NOTE | 2017-06-07 06:30 | NUR ---
PT RESTING WITH EYES CLOSED, AROUSES TO SOFT VERBAL STIMULATION, ADM 0700 MEDS PER MD ORDERS, SEE EMAR, PT WAS CLEANED UP PER LYDIA HO, PT DENIES NEEDS OR PAIN AT THIS TIME
--- NOTE | 2017-06-07 06:43 | NUR ---
SHIFT REPORT TO DAY SHIFT
--- NOTE | 2017-06-07 07:45 | NUR ---
SITTING UP IN BED RESTING COMFORTABLY. OFFERS NO COMPLAINTS. NO S/SX OF DISTRESS. CALL LIGHT WITHIN REACH. WILL CONTINUE TO MONITOR.
[2017-06-07 08:26] VITALS: BP 170/81
--- NOTE | 2017-06-07 10:22 | NUR ---
SITTING UP IN BED RESTING COMFORTABLY. ADMINISTERED MORNING MEDS WITHOUT DIFFICULTY. CHANGED LINENS AND BRIEF DUE TO LARGE URINE INCONTINENCE. OFFERS NO COMPLAINTS. DENIES ANY PAIN. ALERT AND ORIENTED TO PERSON AND PLACE. REORIENTED TO TIME AND SITUATION. CALL LIGHT WITHIN REACH AND BED LOW. WILL CONTINUE TO MONITOR
--- NOTE | 2017-06-07 12:07 | NUR ---
SITTING UP IN WHEELCHAIR EATING LUNCH. OFFERS NO COMPLAINTS. CALL LIGHT WITHIN REACH. WILL CONTINUE TO MONITOR
--- NOTE | 2017-06-07 13:37 | NUR ---
Nutrition Follow Up: Pt is eating 75% meal avg on a diabetic diet. He is receiving Glucerna TID. +BM 06/05/17. Labs reviewed - glucose elevated. Meds noted. Rec continue current diet. RD following.
--- NOTE | 2017-06-07 14:32 | NUR ---
IN THERAPY GYM WITH PHYSICAL THERAPY. NO S/SX OF DISTRESS. WILL CONTINUE TO MONITOR
--- NOTE | 2017-06-07 16:37 | NUR ---
SITTING UP IN BED RESTING COMFORTABLY. OFFERS NO COMPLAINTS. DENIES PAIN. WILL CONTINUE TO MONITOR. CALL LIGHT WITHIN REACH
--- NOTE | 2017-06-07 19:30 | NUR ---
PT INCONTINENCE, CLEAN PERINEAL AREA AND CHANGE GOWN AND LINEN.
[2017-06-07 20:04] VITALS: BP 131/75
--- NOTE | 2017-06-07 22:30 | NUR ---
REST IN BED AND EAT SNACK: APPLE SAUCE AND GRAHAMS CRACKERS.
--- NOTE | 2017-06-08 03:13 | NUR ---
REST IN BED, EYE CLOSE, CALL LIGHT IN REACH.
--- NOTE | 2017-06-08 03:20 | NUR ---
RESTING IN BED, EYES CLOSED. RESPIRING QUIETLY WITH HOB UP 30 DEGREES.
[2017-06-08 06:18] LABS: BASOPHILS 0.2 % (0-2); EOSINOPHILS 0.7 % (0-7); HEMATOCRIT 41.7 % (42.0-54.0); HEMOGLOBIN 13.9 g/dL (13.5-17.5); IMMATURE GRANULOCYTES 0.8 % (0-5); LYMPHOCYTES 16.4 % (15-50); MCH 30.9 pg (26.0-34.0); MCHC 33.3 g/dL (31.0-37.0); MCV 92.7 fL (80.0-100.0); MEAN PLATELET VOLUME 9.1 fL (7.4-10.4); MONOCYTES 8.9 % (2-11); PLATELET COUNT 313 10x3/uL (130-400); RDW 14.1 % (11.5-14.5); WBC 8.7 10x3/uL (4.8-10.8)
[2017-06-08 06:41] LABS: CALC OSMOLALITY 289 mosm/kg (275-300); CALCIUM 9.1 mg/dL (8.5-10.1); CARBON DIOXIDE 27.6 mmol/L (21.0-32.0); CHLORIDE - SERUM 106 mmol/L (98-107); CREATININE - SERUM 0.9 mg/dL (0.6-1.3); GLUCOSE 145 mg/dL (74-106); POTASSIUM - SERUM 3.8 mmol/L (3.5-5.1); SODIUM 142 mmol/L (136-145); UREA NITROGEN 25 mg/dL (7-18); eGFR NON AFRICAN AMERICAN 86 mL/min (90-120)
--- NOTE | 2017-06-08 08:35 | NUR ---
PT IS SITTING IN BED, FINISHED WITH BREAKFAST. VOICES "NO PIAN". "I AM SAD BECAUSE MY LEFT LAST NIGHT AND DIDNT TELL ME SHE LOVED ME". I VOICED I WAS SORRY AND IF IT WOULD HELP IF I TOLD HIM THAT I LOVED HIM. HE SMILED. nO NEEDED VOICED. BED LOW, SIDE RAILSX3, CALL LIGHT WITHIN REACH. WILL CONITNUE TO MONITOR
[2017-06-08 08:51] VITALS: BP 135/79
--- NOTE | 2017-06-08 09:19 | NUR ---
PT IS OFF TO THEMORONIY ROOM WITH PT ILANA QUIROZ
--- NOTE | 2017-06-08 09:55 | NUR ---
PT IS IN THEARPY ROOM WITH PHYSICAL THERAPIST
--- NOTE | 2017-06-08 10:45 | NUR ---
PT IS BACK IN HIS ROOM FROM THERAPY. SITTING UP IN WHEELCHAIR. WHEELCHAIR WHEELS ARE LOCKED. PT VOICED NO NEEDS OR CONCERNS AT THIS TIME. CALL LIGHT WITHIN [facility]. WILL CONTINUE TO MONITOR
--- NOTE | 2017-06-08 13:36 | NUR ---
PT IS WITH SONYA TRAN IN THERAPY ROOM
--- NOTE | 2017-06-08 15:00 | NUR ---
RECIEVED REPORT AT THIS TIME FROM MANUELA.
--- NOTE | 2017-06-08 15:33 | NUR ---
LYING IN BED RESTING AT THIS TIME. AWAKENS EASILY WHEN SPOKEN TO. DENIES ANY NEEDS. AT BESIDE. NO ACUTE DISTRESS NOTED. WILL CONTINUE PLAN OF CARE.
--- NOTE | 2017-06-08 15:56 | NUR ---
CARE TEAM MEETING: PATIENT DAUGHTER ATTENDED MEETING, QUESTIONS AND CONCERNS ADDRESSED. PER REQUEST OF FAMILY A REFERRAL HAS BEEN MADE TO [facility] FOR POSSIBLE ADMISSION. WILL CONTINUE TO FOLLOW WITH PATIENT AND WILL INFORM SPOUSE IF ACCEPTED.
--- NOTE | 2017-06-08 16:30 | NUR ---
PATIENT HAS BEEN ACCEPTED TO [facility] AND HE WILL DISCHARGE THERE IN AM. SPOUSE IS AT BEDSIDE.
--- NOTE | 2017-06-08 17:10 | NUR ---
INCONTINENT VOID NOTED. PT PROVIDED OWN ANGLE CARE, DRESSING CHANGE PROVIDED VIA MODERATE ASSIST. NO ACUTE DISTRESS NOTED. WILL CONTINUE [facility] CARE.
--- NOTE | 2017-06-08 20:10 | NUR ---
PT. IN BED WITH HOB UP FOR COMFORT WITH EYES CLOSED AND RESP. EVEN. PT. AWAKENS EASILY FOR ASSESSMENT. NO VOICED NEEDS. CALL LIGHT WITHIN REACH.
[2017-06-08 20:45] VITALS: BP 136/74
--- NOTE | 2017-06-08 23:50 | NUR ---
PT. IN BED WITH HOB UP FOR COMFORT WITH EYES CLOSED AND RESP. DEEP AND EVEN. CALL LIGHT WITHIN REACH.
--- NOTE | 2017-06-09 03:17 | NUR ---
PT. IN BED WITH HOB UP FOR COMFORT. EYES CLOSED AND RESP. EVEN. CALL LIGHT REMAINS WITHIN HIS REACH.
--- NOTE | 2017-06-09 07:39 | NUR ---
LYING IN BED RESTING COMFORTABLY. OFFERS NO COMPLAINTS. ALERT TO SELF AND PLACE. CALL LIGHT WITHIN REACH. WILL CONTINUE TO MONITOR
--- NOTE | 2017-06-09 09:45 | NUR ---
PATIENT DISCHARGING TO [facility] TODAY. NO DME OR HOME HEALTH NEEDED AT THIS TIME.PATIENT CHOICE FORM FOR SNF AND [facility] FORM SIGNED, EXPLAINED AND FILED IN CHART.PATIENT WILL DISCHARGE PER FACILITY [facility].
--- NOTE | 2017-06-09 09:47 | NUR ---
AN APPOINTMENT WITH DR. KAY WILL BE MADE AT TIME OF DISCHARGE FROM FACILITY. DISCHARGE INFORMATION HAS BEEN FAXED TO JANNETH AT DR. KAY OFFICE
--- NOTE | 2017-06-09 09:50 | NUR ---
REVIEWED DISCHARGE INSTRUCTION AND MEDICATIONS WITH PT. CHART COPY WAS SIGNED AND PT GIVEN A COPY. NO CONCERNS VOICED. ASSISTED PT IN GATHERING BELONGINGS AND DRESSING. CALL LIGHT WITHIN REACH. WILL CONTINUE TO MONITOR
--- NOTE | 2017-06-09 10:05 | NUR ---
STAFF FROM [facility] RECIEVED PT AND TRANSPORTED VIA WHEELCHAIR TO FACILITY [facility]. PT BELONGINGS AND DC INSTRUCTIONS GIVEN TO STAFF OF [facility]. NO CONCERNS VOICED.
--- NOTE | 2017-06-09 10:15 | NUR ---
REPORT CALLED INTO MARCIA TOBAR AT [facility].
== END 2017-06-09 12:27 | DRG 690 ==
LOC: D.REHAB 16:29
PROVIDERS: ADMIT Emergency Medicine
DX: N39.0 Urinary tract infection, site not specified (principal); R53.81 Other malaise; R53.1 Weakness; I10 Essential (primary) hypertension; F03.90 Unspecified dementia, unspecified severity, without behavioral disturbance, psychotic disturbance, mood disturbance, and anxiety; I25.10 Atherosclerotic heart disease of native coronary artery without angina pectoris; B96.20 Unspecified Escherichia coli [E. coli] as the cause of diseases classified elsewhere; E11.65 Type 2 diabetes mellitus with hyperglycemia